=== PATIENT | female | born 1955 | race Caucasian/White ===

== ENCOUNTER 2021-06-07 06:59 | Day surgery (SDC) | payer MEDICARE ==
[2021-06-06 11:44] VITALS: BMI 30.9
[2021-06-07] MEDS ORDERED: Fentanyl 100 MCG/2 ML VIAL ONE ×2 (08:48→10:01)
[2021-06-07] MEDS ORDERED: Dexamethasone 20 MG/5 ML VIAL ONE (09:11)
[2021-06-07] MEDS ORDERED: PROPOFOL 200 MG/20 ML VIAL ONE (09:11)
[2021-06-07] MEDS ORDERED: PHENYLEPHRINE-NS 100 MCG/ML 10 ML SYRINGE ONE (09:11)
[2021-06-07] MEDS ORDERED: Lidocaine 1% PF 5 ML VIAL ONE (09:11)
[2021-06-07] MEDS ORDERED: Ondansetron PF 4 MG/2 ML Vial ONE (09:11)
[2021-06-07] MEDS ORDERED: ePHEDrine 50 MG/ML VIAL ONE (09:11)
[2021-06-07] MEDS ORDERED: EPINEPHrine 1 MG/ML AMP ONE (09:19)
[2021-06-07 09:32] LABS: Anion Gap 14 mmol/L (10-20); BUN (Urea Nitrogen) 10 mg/dL (9.8-20.1); Calc. Creatinine Clearance 83 mL/min (70-130); Calcium 9.5 mg/dL (7.8-10.44); Carbon Dioxide 24 mmol/L (23-31); Chloride 108 mmol/L (98-107); Glucose 93 mg/dL (80-115); Potassium 4.3 mmol/L (3.5-5.1); Sodium 142 mmol/L (136-145)
[2021-06-07] MEDS ORDERED: Bacitracin 1 PK ONE (09:41)
== END 2021-06-07 11:09 | disposition home or self-care (01) ==
LOC: SDC 06:59
PROVIDERS: ATTEND Specialist
PROC: 099670Z Drainage of Left Middle Ear with Drainage Device, Via Natural or Artificial Opening (ICD-10-PCS; principal; 2021-06-07)
DX: G96.01 Cranial cerebrospinal fluid leak, spontaneous (principal); H90.12 Conductive hearing loss, unilateral, left ear, with unrestricted hearing on the contralateral side; D32.0 Benign neoplasm of cerebral meninges; H93.8X2 Other specified disorders of left ear; H69.82 Other specified disorders of Eustachian tube, left ear; H60.62 Unspecified chronic otitis externa, left ear; I10 Essential (primary) hypertension; E78.5 Hyperlipidemia, unspecified; E11.9 Type 2 diabetes mellitus without complications; K21.9 Gastro-esophageal reflux disease without esophagitis; E66.9 Obesity, unspecified; Z68.31 Body mass index [BMI] 31.0-31.9, adult; Z79.4 Long term (current) use of insulin; Z79.899 Other long term (current) drug therapy; Z88.1 Allergy status to other antibiotic agents; Z98.890 Other specified postprocedural states
CPT/HCPCS: 36416; 80048; 85014; 85018; 93005; 93010; J0171; J1100; J2405; J2704; J3010; J3490

== ENCOUNTER 2021-12-31 11:54 | Day surgery (SDC) | payer MEDICARE ==
[2021-12-27 11:48] VITALS: BMI 30.4
[2021-12-31] MEDS ORDERED: Fentanyl 100 MCG/2 ML VIAL ONE (13:14)
[2021-12-31] MEDS ORDERED: Ondansetron PF 4 MG/2 ML Vial ONE ×2 (13:14→13:45)
[2021-12-31] MEDS ORDERED: Glycopyrrolate 0.2 MG/ML 5 ML SYRINGE ONE (13:45)
[2021-12-31] MEDS ORDERED: Lidocaine 1% PF 5 ML VIAL ONE (13:45)
[2021-12-31] MEDS ORDERED: PROPOFOL 200 MG/20 ML VIAL ONE (13:45)
[2021-12-31] MEDS ORDERED: PHENYLEPHRINE-NS 100 MCG/ML 10 ML SYRINGE ONE (13:45)
[2021-12-31] MEDS ORDERED: Magnevist 469MG/ML 20 ML VIAL ONE (15:09)
== END 2021-12-31 15:57 | disposition home or self-care (01) ==
LOC: MRI 11:54
PROVIDERS: ATTEND Surgery
DX: D33.2 Benign neoplasm of brain, unspecified (principal); I10 Essential (primary) hypertension; E11.9 Type 2 diabetes mellitus without complications; Z79.4 Long term (current) use of insulin; Z79.899 Other long term (current) drug therapy; Z88.1 Allergy status to other antibiotic agents; Z88.6 Allergy status to analgesic agent; Z98.890 Other specified postprocedural states
CPT/HCPCS: 36415; 70553; 82565; A9579; J2405; J2704; J3010

== ENCOUNTER 2022-02-14 12:00 | Inpatient (IN) | payer MEDICARE ==
[2022-02-19] MEDS ORDERED: Thrombin 5000 UNITS/5 ML VIAL ONE (06:34)
[2022-02-19] MEDS ORDERED: Lidocaine 1% w/Epinephrine 1:100K 20 ML VIAL ONE (06:34)
[2022-02-19] MEDS ORDERED: Bacitracin Zinc Ointment 30 gm TUBE ONE (06:53)
[2022-02-19] MEDS ORDERED: levETIRAcetam 500 MG/5 ML VIAL ONE (06:53)
[2022-02-19] MEDS ORDERED: Propofol 1,000 MG/100 ML VIAL IV ONE (06:53)
[2022-02-19] MEDS ORDERED: Dexmedetomidine 200 MCG/2 ML VIAL ONE (06:53)
[2022-02-19] MEDS ORDERED: Midazolam HCl 2 mg/2 ml Vial ONE (07:13)
[2022-02-19] MEDS ORDERED: CEFAZOLIN 2 GM VIAL ONE (07:21)
[2022-02-19] MEDS ORDERED: Sodium Chloride 0.9% 100 ML ONE (07:21)
[2022-02-19] MEDS ORDERED: Ondansetron PF 4 MG/2 ML Vial ONE (07:53)
[2022-02-19] MEDS ORDERED: Phenylephrine 10 MG/ML VIAL ONE (07:53)
[2022-02-19] MEDS ORDERED: PROPOFOL 200 MG/20 ML VIAL ONE (07:53)
[2022-02-19] MEDS ORDERED: Lidocaine 1% PF 5 ML VIAL ONE ×2 (07:53)
[2022-02-19] MEDS ORDERED: Rocuronium Bromide 10 MG/ML (10ML VIAL) ONE (07:53)
[2022-02-19] MEDS ORDERED: Dexamethasone 20 MG/5 ML VIAL ONE (07:53)
[2022-02-19] MEDS ORDERED: ePHEDrine 50 MG/ML VIAL ONE (07:53)
[2022-02-19] MEDS ORDERED: fentaNYL Citrate/PF 100 MCG/2 ML SYRINGE ONE (08:19)
[2022-02-19] MEDS ORDERED: Propofol 500 MG/50 ML VIAL ONE (13:55)
[2022-02-19] MEDS ORDERED: Acetaminophen 325 MG TAB PO PRN (14:47)
[2022-02-19] MEDS ORDERED: Labetalol HCl 100 MG/20 ML VIAL SLOW IVP PRN (14:47)
[2022-02-19] MEDS ORDERED: Scopolamine 1.5 mg/72 hour Patch TD PRN (14:53)
[2022-02-19] MEDS ORDERED: Promethazine HCl 12.5 MG in Sodium Chloride 0.9% 50 ML IVPB PRN (14:53)
[2022-02-19] MEDS ORDERED: Meclizine HCl 25 MG TAB PO PRN (14:55)
[2022-02-19] MEDS ORDERED: NPH, Human Insulin Isophane 300 UNIT/3 ML VIAL SC PRN ×2 (14:55→15:19)
[2022-02-19] MEDS ORDERED: Dextrose 5% in Water 1,000 ML IV PRN (15:15)
[2022-02-19] MEDS ORDERED: Dextrose 50% Abboject 50 ML SYRINGE IVP PRN (15:15)
[2022-02-19 16:32] VITALS: BMI 28.3
[2022-02-19] MEDS: Sodium Chloride 0.9% 1,000 ML IV SCH (16:41)
[2022-02-19] MEDS: CEFAZOLIN 2 GM in Sodium Chloride 0.9% 100 ML IVPB SCH (16:41)
[2022-02-19] MEDS: Morphine 2 MG/ML VIAL SLOW IVP PRN (18:58)
[2022-02-19] MEDS: Insulin Glargine 30 UNITS/0.3 ML VIAL SC SCH (21:00)
[2022-02-20] MEDS: Lisinopril 20 MG TAB PO SCH ×3 (00:18→20:55)
[2022-02-20] MEDS: levETIRAcetam 500 MG/5 ML VIAL SLOW IVP SCH ×4 (00:18→10:04)
[2022-02-20] MEDS: Acetaminophen/Codeine 30-300mg Tablet PO PRN ×2 (00:21→20:55)
[2022-02-20] MEDS: CEFAZOLIN 2 GM in Sodium Chloride 0.9% 100 ML IVPB SCH ×2 (01:15→09:21)
[2022-02-20] MEDS: hydrALAZINE 20 MG/ML VIAL SLOW IVP PRN (02:31)
[2022-02-20] MEDS: Sodium Chloride 0.9% 1,000 ML IV SCH ×2 (03:25→17:43)
[2022-02-20] MEDS: Ondansetron PF 4 MG/2 ML Vial IVP PRN ×2 (03:32→12:11)
[2022-02-20 05:20] LABS: #Lymphocytes 1.3 thou/uL (1.20-3.40); #Monocytes 1.3 thou/uL (0.11-0.59); #Neutrophils 14.1 thou/uL (1.40-6.50); %Basophils 0.1 % (0.0-1.0); %Eosinophils 0.1 % (0.0-10.0); %Lymphocytes 7.8 % (21.0-51.0); %Monocytes 7.6 % (0.0-10.0); %Neutrophils 84.5 % (42.0-75.0); Hemoglobin 10.4 g/dL (12.0-16.0); Mean Corpuscular HGB CONC 33.1 g/dL (32.0-36.0); Mean Corpuscular Hemoglobin 30.3 pg (27.0-31.0); Mean Corpuscular Volume 91.4 fL (78.0-98.0); Mean Platelet Volume 8.1 fL (7.4-10.4); Platelet Count 222 thou/uL (130-400); RBC Distribution Width 11.2 % (11.5-14.5); Red Blood Cell (RBC) Count 3.42 mill/uL (4.20-5.40); White Blood Cell (WBC) Count 16.7 thou/uL (4.8-10.8)
[2022-02-20 05:40] LABS: Anion Gap 13 mmol/L (10-20); BUN (Urea Nitrogen) 13 mg/dL (9.8-20.1); Calc. Creatinine Clearance 94 mL/min (70-130); Calcium 8.6 mg/dL (7.8-10.44); Carbon Dioxide 21 mmol/L (23-31); Chloride 107 mmol/L (98-107); Estimated GFR 94; Glucose 160 mg/dL (80-115); Potassium 4.2 mmol/L (3.5-5.1); Sodium 137 mmol/L (136-145)
[2022-02-20] MEDS: Insulin Glargine 30 UNITS/0.3 ML VIAL SC SCH ×2 (09:22→20:55)
[2022-02-20] MEDS: Multivit, Therapeutic 1 TAB PO SCH (09:22)
[2022-02-20] MEDS ORDERED: levETIRAcetam 500 MG TAB PO SCH (09:52)
[2022-02-20] MEDS: Atorvastatin Calcium 10 MG TAB PO SCH (10:01)
[2022-02-20] MEDS: Dexamethasone 4 MG TAB PO SCH ×3 (10:07→20:55)
[2022-02-20] MEDS: Morphine 2 MG/ML VIAL SLOW IVP PRN ×2 (12:11→15:49)
[2022-02-20] MEDS ORDERED: Meclizine HCl 25 MG TAB PO PRN (14:49)
[2022-02-20] MEDS ORDERED: NPH, Human Insulin Isophane 300 UNIT/3 ML VIAL SC PRN (14:51)
[2022-02-20] MEDS ORDERED: Insulin Regular 300 UNITS/3 ML VIAL SC PRN (15:30)
[2022-02-21] MEDS: Acetaminophen/Codeine 30-300mg Tablet PO PRN ×3 (02:54→17:10)
[2022-02-21] MEDS: Dexamethasone 4 MG TAB PO SCH ×4 (02:54→20:14)
[2022-02-21] MEDS: Sodium Chloride 0.9% 1,000 ML IV SCH ×2 (05:23→17:13)
[2022-02-21] MEDS: Atorvastatin Calcium 10 MG TAB PO SCH (08:11)
[2022-02-21] MEDS: Multivit, Therapeutic 1 TAB PO SCH (08:11)
[2022-02-21] MEDS: Lisinopril 20 MG TAB PO SCH ×2 (08:11→20:14)
[2022-02-21] MEDS: levETIRAcetam 500 MG TAB PO SCH ×2 (08:11→20:14)
[2022-02-21] MEDS: Insulin Glargine 30 UNITS/0.3 ML VIAL SC SCH ×2 (08:11→20:15)
[2022-02-21] MEDS: Morphine 2 MG/ML VIAL SLOW IVP PRN (20:14)
[2022-02-22] MEDS: Acetaminophen/Codeine 30-300mg Tablet PO PRN ×4 (02:22→20:52)
[2022-02-22] MEDS: Dexamethasone 4 MG TAB PO SCH (02:22)
[2022-02-22] MEDS: hydrALAZINE 20 MG/ML VIAL SLOW IVP PRN ×2 (04:07→15:46)
[2022-02-22] MEDS: Sodium Chloride 0.9% 1,000 ML IV SCH ×2 (07:04→20:53)
[2022-02-22] MEDS: Lisinopril 20 MG TAB PO SCH ×2 (08:26→20:51)
[2022-02-22] MEDS: Atorvastatin Calcium 10 MG TAB PO SCH (08:26)
[2022-02-22] MEDS: Multivit, Therapeutic 1 TAB PO SCH (08:26)
[2022-02-22] MEDS: levETIRAcetam 500 MG TAB PO SCH (08:26)
[2022-02-22] MEDS: Insulin Glargine 30 UNITS/0.3 ML VIAL SC SCH ×2 (08:27→20:53)
[2022-02-22] MEDS ORDERED: Dexamethasone 1 MG TAB PO SCH (09:00)
[2022-02-22 11:05] LABS: Anion Gap 14 mmol/L (10-20); BUN (Urea Nitrogen) 18 mg/dL (9.8-20.1); Calc. Creatinine Clearance 89 mL/min (70-130); Calcium 9.1 mg/dL (7.8-10.44); Carbon Dioxide 23 mmol/L (23-31); Chloride 107 mmol/L (98-107); Estimated GFR 91; Glucose 158 mg/dL (80-115); Sodium 140 mmol/L (136-145)
[2022-02-22 11:20] LABS: Bilirubin Negative (Negative); Blood, Urine Negative (Negative); Clarity Clear (Clear); Glucose, Urine (Dipstick) Normal (Negative); Ketone, Urine Trace mg/dL (Negative); Leukocyte Negative Leu/uL (Negative); Nitrite Negative (Negative); Protein, Urine (Dipstick) Negative (Neg-Trace); RBC/HPF 0-3 HPF (0-3); Specific Gravity, Urine 1.016 (1.002-1.036); Squamous Epithelial 0-3 HPF (0-3); Urobilinogen Normal mg/dL (Less than 2); WBC/HPF 0-3 HPF (0-3); pH, Urine 5.5 (5.0-9.0)
[2022-02-22 11:21] LABS: Bacteria/HPF Rare-Few HPF (None Seen)
[2022-02-22 11:22] LABS: Urine Culture Reflex No No
[2022-02-22] MEDS: clonazePAM 0.5 MG TAB PO PRN (12:52)
[2022-02-23] MEDS: Acetaminophen/Codeine 30-300mg Tablet PO PRN ×3 (02:58→18:51)
[2022-02-23] MEDS: Multivit, Therapeutic 1 TAB PO SCH (10:00)
[2022-02-23] MEDS: Atorvastatin Calcium 10 MG TAB PO SCH (10:00)
[2022-02-23] MEDS: Insulin Glargine 30 UNITS/0.3 ML VIAL SC SCH ×2 (10:00→20:55)
[2022-02-23] MEDS: clonazePAM 0.5 MG TAB PO PRN ×2 (12:12→22:51)
[2022-02-23] MEDS: Lisinopril 20 MG TAB PO SCH ×2 (12:12→20:55)
[2022-02-23] MEDS: hydrALAZINE 20 MG/ML VIAL SLOW IVP PRN (15:45)
[2022-02-23] MEDS: Sodium Chloride 0.9% 1,000 ML IV SCH ×2 (16:14→22:50)
[2022-02-24] MEDS: Acetaminophen/Codeine 30-300mg Tablet PO PRN ×3 (03:44→17:41)
[2022-02-24] MEDS ORDERED: Dexamethasone 1 MG TAB PO SCH (09:00)
[2022-02-24] MEDS: Atorvastatin Calcium 10 MG TAB PO SCH (09:41)
[2022-02-24] MEDS: Multivit, Therapeutic 1 TAB PO SCH (09:42)
[2022-02-24] MEDS: Lisinopril 20 MG TAB PO SCH ×2 (09:45→21:45)
[2022-02-24] MEDS: Insulin Glargine 30 UNITS/0.3 ML VIAL SC SCH ×2 (09:48→21:45)
[2022-02-24] MEDS: clonazePAM 0.5 MG TAB PO PRN ×2 (09:53→23:58)
[2022-02-24] MEDS: Sodium Chloride 0.9% 1,000 ML IV SCH ×2 (19:40→23:58)
[2022-02-25] MEDS: HYDROcodone/Acetaminophen 7.5/325 mg Tablet PO PRN ×2 (00:02→23:45)
[2022-02-25 02:12] LABS: SARS-CoV-2 NAA Rapid Test DETECTED (NotDetected)
[2022-02-25] MEDS: hydrALAZINE 20 MG/ML VIAL SLOW IVP PRN ×2 (07:50→08:34)
[2022-02-25] MEDS: Sodium Chloride 0.9% 1,000 ML IV SCH ×2 (08:15→17:40)
[2022-02-25] MEDS: Insulin Glargine 30 UNITS/0.3 ML VIAL SC SCH ×2 (09:00→22:00)
[2022-02-25] MEDS: Multivit, Therapeutic 1 TAB PO SCH (09:00)
[2022-02-25] MEDS ORDERED: Iopamidol 370 76% 50 ML VIAL FS ONE (09:08)
[2022-02-25] MEDS: Morphine 2 MG/ML VIAL SLOW IVP PRN (09:49)
[2022-02-25] MEDS ORDERED: Lidocaine 1% (PF) 30 ML VIAL ONE (10:08)
[2022-02-25] MEDS ORDERED: Iopamidol 370 76% 100 ML VIAL ONE (11:33)
[2022-02-25] MEDS: Acetaminophen/Codeine 30-300mg Tablet PO PRN (13:12)
[2022-02-25] MEDS: Atorvastatin Calcium 10 MG TAB PO SCH (13:13)
[2022-02-25] MEDS: Lisinopril 20 MG TAB PO SCH ×2 (13:14→22:00)
[2022-02-25] MEDS: clonazePAM 0.5 MG TAB PO PRN ×2 (13:15→23:45)
[2022-02-25 13:25] LABS: #Eosinphils 0.1 thou/uL (0.0-0.7); #Lymphocytes 1.2 thou/uL (1.20-3.40); #Monocytes 0.7 thou/uL (0.11-0.59); #Neutrophils 7.4 thou/uL (1.40-6.50); %Basophils 0.1 % (0.0-1.0); %Eosinophils 1.4 % (0.0-10.0); %Lymphocytes 13.2 % (21.0-51.0); %Monocytes 7.1 % (0.0-10.0); %Neutrophils 78.3 % (42.0-75.0); Hemoglobin 10.3 g/dL (12.0-16.0); Mean Corpuscular HGB CONC 32.5 g/dL (32.0-36.0); Mean Corpuscular Hemoglobin 31.2 pg (27.0-31.0); Mean Corpuscular Volume 95.8 fL (78.0-98.0); Mean Platelet Volume 7.6 fL (7.4-10.4); Platelet Count 252 thou/uL (130-400); RBC Distribution Width 11.6 % (11.5-14.5); Red Blood Cell (RBC) Count 3.29 mill/uL (4.20-5.40); White Blood Cell (WBC) Count 9.4 thou/uL (4.8-10.8)
[2022-02-25 13:41] LABS: Anion Gap 13 mmol/L (10-20); BUN (Urea Nitrogen) 12 mg/dL (9.8-20.1); Calc. Creatinine Clearance 97 mL/min (70-130); Calcium 8.6 mg/dL (7.8-10.44); Carbon Dioxide 24 mmol/L (23-31); Chloride 106 mmol/L (98-107); Estimated GFR 97; Glucose 101 mg/dL (80-115); Potassium 3.7 mmol/L (3.5-5.1); Sodium 139 mmol/L (136-145)
[2022-02-26] MEDS: Acetaminophen/Codeine 30-300mg Tablet PO PRN ×2 (03:21→11:32)
[2022-02-26] MEDS ORDERED: Dexamethasone 1 MG TAB PO SCH (09:00)
[2022-02-26] MEDS: Lisinopril 20 MG TAB PO SCH (09:50)
[2022-02-26] MEDS: Multivit, Therapeutic 1 TAB PO SCH (09:50)
[2022-02-26] MEDS: Atorvastatin Calcium 10 MG TAB PO SCH (09:50)
[2022-02-26] MEDS: Insulin Glargine 30 UNITS/0.3 ML VIAL SC SCH (09:50)
[2022-02-26 12:10] VITALS: BP 137/70; TEMP 97.9
[2022-02-26] MEDS: Sodium Chloride 0.9% 1,000 ML IV SCH (13:32)
[2022-02-26 14:48] LABS: Actual Bicarbonate (HCO3a) 18.4 mEq/L (22-28); Analyzer IN Cardio OR; CO2 Tension 32.8 mmHg (35.0-45.0); Calcium, Ionized (arterial) 1.12 mmol/L (1.12-1.30); Carboxyhemoglobin (COHb) 0.1 gm% (0.0-3.0); Hemoglobin (Hb) 11.4 g/dL (12.0-16.0); Potassium - ABG Lab 4.06 mmol/L (3.70-5.30); pH, Arterial 7.37 (7.35-7.45)
[2022-02-26 14:49] LABS: Puncture Site Arterial Line
== END 2022-02-26 13:46 | DRG 25 ==
LOC: SURG A 02-19 05:43 → CCU 02-19 15:14 → IMCU/EMU 02-20 15:43 → SURG A 02-22 11:01
PROVIDERS: ADMIT Surgery; ATTEND Surgery
PROC: 00B10ZZ Excision of Cerebral Meninges, Open Approach (ICD-10-PCS; principal; 2022-02-19)
PROC: 00B Central Nervous System and Cranial Nerves, Excision (ICD-10-PCS; 2022-02-19)
PROC: 00U207Z Supplement Dura Mater with Autologous Tissue Substitute, Open Approach (ICD-10-PCS; 2022-02-19)
PROC: 06H03DZ Insertion of Intraluminal Device into Inferior Vena Cava, Percutaneous Approach (ICD-10-PCS; 2022-02-25)
PROC: B5191ZZ Fluoroscopy of Inferior Vena Cava using Low Osmolar Contrast (ICD-10-PCS; 2022-02-25)
PROC: 8E0ZXY6 Isolation (ICD-10-PCS; 2022-02-25)
DX: D32.0 Benign neoplasm of cerebral meninges (principal); G93.41 Metabolic encephalopathy; U07.1 COVID-19; I82.413 Acute embolism and thrombosis of femoral vein, bilateral; E11.9 Type 2 diabetes mellitus without complications; I10 Essential (primary) hypertension; H49.00 Third [oculomotor] nerve palsy, unspecified eye; H49.10 Fourth [trochlear] nerve palsy, unspecified eye; H49.20 Sixth [abducent] nerve palsy, unspecified eye; R13.10 Dysphagia, unspecified; Z28.21 Immunization not carried out because of patient refusal; Z79.4 Long term (current) use of insulin; Z98.890 Other specified postprocedural states; Z82.5 Family history of asthma and other chronic lower respiratory diseases; Z82.49 Family history of ischemic heart disease and other diseases of the circulatory system; Z79.899 Other long term (current) drug therapy; Z79.52 Long term (current) use of systemic steroids
CPT/HCPCS: 36415; 36416; 37193; 70450; 71275; 80048; 81001; 82805; 85025; 86850; 86900; 86901; 88307; 88331; 88334; 88341; 88342; 88360; 93005; 93010; 93970; C1713; C1776; C1788; C1880; J0360; J0690; J1100; J1815; J1953; J2001; J2250; J2270; J2370; J2405; J2704; J3370; J3490; J7050; J8540; Q9967; U0002; U0003; U0005

== ENCOUNTER 2022-03-13 13:45 | Outpatient (CLI) | payer MEDICARE, OTHER | END 2022-03-13 13:46 | disposition home or self-care (01) | LOC: CT 13:45 | PROVIDERS: ATTEND Surgery | DX: D33.2 Benign neoplasm of brain, unspecified (principal); S06.5X9A Traumatic subdural hemorrhage with loss of consciousness of unspecified duration, initial encounter; Z98.890 Other specified postprocedural states | CPT/HCPCS: 70450 ==

== ENCOUNTER 2022-03-30 10:29 | Emergency (ER) | payer MEDICARE | END 2022-03-30 13:19 | disposition home or self-care (01) | LOC: ERS 10:29 | DX: R22.0 Localized swelling, mass and lump, head (principal); E11.9 Type 2 diabetes mellitus without complications; I10 Essential (primary) hypertension; Z79.899 Other long term (current) drug therapy; Z79.01 Long term (current) use of anticoagulants; Z79.4 Long term (current) use of insulin | CPT/HCPCS: 70450 ==

== ENCOUNTER 2022-04-26 09:36 | Day surgery (SDC) | payer MEDICARE ==
[2022-04-24 11:44] VITALS: BMI 28.3
[~2022-04-26 09:36] MED LIST: Magnevist 469MG/ML 20 ML VIAL ONE
[2022-04-26] MEDS ORDERED: Midazolam HCl 2 mg/2 ml Vial ONE (10:50)
[2022-04-26] MEDS ORDERED: PROPOFOL 200 MG/20 ML VIAL ONE (12:00)
[2022-04-26] MEDS ORDERED: Lidocaine 1% MPF 2 ML VIAL ONE (12:00)
[2022-04-26] MEDS ORDERED: ePHEDrine 50 MG/ML VIAL ONE (12:00)
== END 2022-04-26 13:48 | disposition home or self-care (01) ==
LOC: MRI 09:36
PROVIDERS: ATTEND Radiology Radiation Oncology
DX: D32.0 Benign neoplasm of cerebral meninges (principal); Z88.1 Allergy status to other antibiotic agents; Z88.6 Allergy status to analgesic agent; Z88.8 Allergy status to other drugs, medicaments and biological substances
CPT/HCPCS: 36416; 70553; J2250

== ENCOUNTER 2023-10-21 08:20 | Outpatient (CLI) | payer MEDICARE ==
[2023-10-21] MEDS ORDERED: Iopamidol 370 76% 100 ML VIAL ONE (10:46)
== END 2023-10-21 08:21 | disposition home or self-care (01) ==
LOC: CT 08:20
PROVIDERS: ATTEND Specialist
DX: R22.0 Localized swelling, mass and lump, head (principal); D49.6 Neoplasm of unspecified behavior of brain; G93.89 Other specified disorders of brain; Z98.890 Other specified postprocedural states
CPT/HCPCS: 70470; 82565; Q9967